=== PATIENT | female | born 1970 | race Caucasian/White ===

== ENCOUNTER 2016-06-02 23:50 | Emergency (ER) | payer BC, MEDICAID ==
[2016-06-03] MEDS ORDERED: FLUCONAZOLE 100 MG TABLET ONE (03:37)
[2016-06-03] MEDS ORDERED: metroNIDAZOLE 250 MG TABLET PO ONE (03:38)
[2016-06-03] MEDS: FLUCONAZOLE 100 MG TABLET PO STA (03:40)
[2016-06-03] MEDS: metroNIDAZOLE 250 MG TABLET PO STA (03:40)
== END 2016-06-03 03:45 | disposition home or self-care (01) ==
DX: N76.0 Acute vaginitis (principal)
CPT/HCPCS: 81001; 87210; 87491; 87591; 99283; A9270

== ENCOUNTER 2016-11-06 09:45 | Outpatient (CLI) | payer MEDICAID ==
[2016-11-10 19:26] LABS: TEST RESULT REPORT (())
== END 2016-11-06 09:46 | disposition home or self-care (01) ==
LOC: LAB 09:45
PROVIDERS: ATTEND Family Medicine
DX: R76.11 Nonspecific reaction to tuberculin skin test without active tuberculosis (principal)
CPT/HCPCS: 36415; 81599; 86480

== ENCOUNTER 2017-05-13 16:30 | Outpatient (CLI) | payer MEDICAID | END 2017-05-13 16:31 | disposition home or self-care (01) | LOC: LAB.R 16:30 | PROVIDERS: ATTEND Physician Assistant Medical | DX: R30.0 Dysuria (principal) | CPT/HCPCS: 87086 ==

== ENCOUNTER 2017-05-14 20:24 | Outpatient (CLI) | payer MEDICAID ==
[2017-05-14 12:30] LABS: BASOPHILS # (AUTO) 0.1 10^3/uL (0.0-0.1); BASOPHILS % (AUTO) 0.9 %; EOSINOPHILS # (AUTO) 0.1 10^3/uL (0.0-0.7); EOSINOPHILS % (AUTO) 1.2 %; HGB - HEMOGLOBIN 14.3 g/dL (12.0-16.0); LYMPHOCYTES # (AUTO) 2.3 10^3/uL (1.5-3.5); LYMPHOCYTES % (AUTO) 40.5 %; MEAN CORPUSCULAR HEMOGLOBIN 29.5 pg (27.0-31.0); MEAN CORPUSCULAR HGB CONC 33.6 g/dL (32.0-36.0); MEAN CORPUSCULAR VOLUME 87.8 fL (81.0-99.0); MEAN PLATELET VOLUME 7.6 fL (7.9-10.8); MONOCYTES # (AUTO) 0.4 10^3/uL (0.0-1.0); MONOCYTES % (AUTO) 6.9 %; NEUTROPHILS # (AUTO) 2.8 10^3/uL (1.5-6.6); NEUTROPHILS % (AUTO) 50.5 %; PLT - PLATELET COUNT 207 10^3/uL (130-450); RED BLOOD COUNT 4.85 10^6/uL (4.20-5.40); RED CELL DISTRIBUTION WIDTH 12.8 % (12.0-15.0); WHITE BLOOD COUNT 5.6 x10^3/uL (4.8-10.8)
[2017-05-14 13:05] LABS: HB2 TOTAL 15.9 g/dL; HEMOGLOBIN A1C 1.68 g/dL; HEMOGLOBIN A1C % 11.8 % (4.6-6.2)
[2017-05-14 14:20] LABS: ALBUMIN/GLOBULIN RATIO 1.4 (1.0-2.2); ALKALINE PHOSPHATASE 46 IU/L (42-121); ALT ALANINE AMINOTRANSFERASE 49 IU/L (10-60); AST ASPARTATE AMINOTRANSFERASE 32 IU/L (10-42); BILIRUBIN,TOTAL 0.6 mg/dL (0.2-1.0); BUN - BLOOD UREA NITROGEN 11 mg/dL (6-20); CALCIUM 9.2 mg/dL (8.5-10.3); CARBON DIOXIDE - CO2 26 mmol/L (21-32); CHLORIDE 99 mmol/L (101-111); CHOL/HDL RATIO 4.8 (<4.4); CHOLESTEROL 241 mg/dL; CREATININE 0.6 mg/dL (0.4-1.0); GFR - MDRD 108 (>89); GLUCOSE 261 mg/dL (70-100); HDL CHOLESTEROL 50 mg/dL; LDL CHOLESTEROL,CALCULATED 134 mg/dL; LDL/HDL RATIO 2.7 (<4.4); SODIUM 133 mmol/L (135-145); TOTAL PROTEIN 6.9 g/dL (6.7-8.2); VLDL CHOLESTEROL 57 mg/dL
== END 2017-05-14 20:25 | disposition home or self-care (01) ==
LOC: LAB.WCP 20:24
PROVIDERS: ATTEND Physician Assistant Medical
DX: Z00.00 Encounter for general adult medical examination without abnormal findings (principal); R81 Glycosuria
CPT/HCPCS: 36415; 80053; 80061; 83036; 83721; 84443; 85025

== ENCOUNTER 2017-08-31 08:11 | Outpatient (CLI) | payer MEDICAID ==
[2017-08-31 13:57] LABS: HB2 TOTAL 15.7 g/dL; HEMOGLOBIN A1C 1.02 g/dL; HEMOGLOBIN A1C % 8.1 % (4.6-6.2)
[2017-08-31 13:58] LABS: ALBUMIN 3.9 g/dL (3.2-5.5); ALBUMIN/GLOBULIN RATIO 1.1 (1.0-2.2); ALKALINE PHOSPHATASE 40 IU/L (42-121); ALT ALANINE AMINOTRANSFERASE 43 IU/L (10-60); AST ASPARTATE AMINOTRANSFERASE 23 IU/L (10-42); BILIRUBIN,TOTAL 0.7 mg/dL (0.2-1.0); BUN - BLOOD UREA NITROGEN 17 mg/dL (6-20); CALCIUM 9.2 mg/dL (8.5-10.3); CARBON DIOXIDE - CO2 23 mmol/L (21-32); CHLORIDE 103 mmol/L (101-111); CHOL/HDL RATIO 4.4 (<4.4); CHOLESTEROL 182 mg/dL; CREATININE 0.7 mg/dL (0.4-1.0); GFR - MDRD 90 (>89); GLUCOSE 231 mg/dL (70-100); HDL CHOLESTEROL 41 mg/dL; LDL CHOLESTEROL,CALCULATED 87 mg/dL; LDL/HDL RATIO 2.1 (<4.4); SODIUM 134 mmol/L (135-145); TOTAL PROTEIN 7.6 g/dL (6.7-8.2); VLDL CHOLESTEROL 54 mg/dL
== END 2017-08-31 08:12 | disposition home or self-care (01) ==
LOC: LAB.WCP 08:11
PROVIDERS: ATTEND Physician Assistant Medical
DX: E11.9 Type 2 diabetes mellitus without complications (principal)
CPT/HCPCS: 36415; 80053; 80061; 83036; 83721

== ENCOUNTER 2017-11-26 11:38 | Outpatient (CLI) | payer MEDICAID ==
[2017-11-26 19:56] LABS: CALCIUM 8.8 mg/dL (8.5-10.3); CREATININE 0.8 mg/dL (0.4-1.0)
[2017-11-26 19:57] LABS: HB2 TOTAL 14.3 g/dL; HEMOGLOBIN A1C 0.77 g/dL; HEMOGLOBIN A1C % 7.1 % (4.6-6.2)
== END 2017-11-26 11:39 ==
LOC: LAB.WCP 11:38
PROVIDERS: ATTEND Physician Assistant Medical
DX: E11.9 Type 2 diabetes mellitus without complications (principal)
CPT/HCPCS: 36415; 80048; 83036

== ENCOUNTER 2018-11-19 08:00 | Outpatient (CLI) | payer MEDICAID ==
[2018-11-19 11:59] LABS: BASOPHILS % (AUTO) 0.7 %; EOSINOPHILS # (AUTO) 0.1 10^3/uL (0.0-0.7); HGB - HEMOGLOBIN 13.6 g/dL (12.0-16.0); LYMPHOCYTES # (AUTO) 2.2 10^3/uL (1.5-3.5); LYMPHOCYTES % (AUTO) 36.1 %; MEAN CORPUSCULAR HEMOGLOBIN 28.8 pg (27.0-31.0); MEAN CORPUSCULAR HGB CONC 32.5 g/dL (32.0-36.0); MEAN CORPUSCULAR VOLUME 88.6 fL (81.0-99.0); MEAN PLATELET VOLUME 9.6 fL (7.9-10.8); MONOCYTES # (AUTO) 0.4 10^3/uL (0.0-1.0); MONOCYTES % (AUTO) 6.4 %; NEUTROPHILS # (AUTO) 3.4 10^3/uL (1.5-6.6); NEUTROPHILS % (AUTO) 55.5 %; PLT - PLATELET COUNT 220 10^3/uL (130-450); RED BLOOD COUNT 4.72 10^6/uL (4.20-5.40); WHITE BLOOD COUNT 6.1 x10^3/uL (4.8-10.8)
[2018-11-19 12:42] LABS: ALBUMIN 3.8 g/dL (3.2-5.5); ALBUMIN/GLOBULIN RATIO 1.2 (1.0-2.2); ALKALINE PHOSPHATASE 32 IU/L (42-121); ALT ALANINE AMINOTRANSFERASE 27 IU/L (10-60); AST ASPARTATE AMINOTRANSFERASE 22 IU/L (10-42); BILIRUBIN,TOTAL 0.7 mg/dL (0.2-1.0); BUN - BLOOD UREA NITROGEN 15 mg/dL (6-20); CARBON DIOXIDE - CO2 26 mmol/L (21-32); CHLORIDE 104 mmol/L (101-111); CHOL/HDL RATIO 4.2 (<4.4); CHOLESTEROL 209 mg/dL; CREATININE 0.7 mg/dL (0.4-1.0); GFR - MDRD 89 (>89); GLUCOSE 184 mg/dL (70-100); HDL CHOLESTEROL 50 mg/dL; LDL CHOLESTEROL,CALCULATED 127 mg/dL; LDL/HDL RATIO 2.5 (<4.4); SODIUM 136 mmol/L (135-145); VLDL CHOLESTEROL 32 mg/dL
[2018-11-19 13:37] LABS: HB2 TOTAL 13.9 g/dL; HEMOGLOBIN A1C 1.39 g/dL; HEMOGLOBIN A1C % 11.3 % (4.6-6.2)
== END 2018-11-19 23:59 | disposition home or self-care (01) ==
LOC: LAB.WCP 08:00
PROVIDERS: ATTEND Physician Assistant
DX: Z00.00 Encounter for general adult medical examination without abnormal findings (principal); E11.9 Type 2 diabetes mellitus without complications
CPT/HCPCS: 36415; 80053; 80061; 83036; 83721; 84443; 85025

== ENCOUNTER 2019-03-15 07:24 | Outpatient (CLI) | payer BC ==
[2019-03-15 16:14] LABS: HB2 TOTAL 12.9 g/dL; HEMOGLOBIN A1C 0.88 g/dL; HEMOGLOBIN A1C % 8.4 % (4.6-6.2)
[2019-03-15 16:20] LABS: ALBUMIN 3.8 g/dL (3.2-5.5); ALBUMIN/GLOBULIN RATIO 1.4 (1.0-2.2); ALKALINE PHOSPHATASE 30 IU/L (42-121); ALT ALANINE AMINOTRANSFERASE 44 IU/L (10-60); AST ASPARTATE AMINOTRANSFERASE 27 IU/L (10-42); BILIRUBIN,TOTAL 0.5 mg/dL (0.2-1.0); BUN - BLOOD UREA NITROGEN 19 mg/dL (6-20); CALCIUM 8.8 mg/dL (8.5-10.3); CARBON DIOXIDE - CO2 24 mmol/L (21-32); CHLORIDE 104 mmol/L (101-111); CHOL/HDL RATIO 4.5 (<4.4); CHOLESTEROL 224 mg/dL; CREATININE 0.7 mg/dL (0.4-1.0); GFR - MDRD 89 (>89); GLUCOSE 167 mg/dL (70-100); HDL CHOLESTEROL 50 mg/dL; LDL CHOLESTEROL,CALCULATED 121 mg/dL; LDL/HDL RATIO 2.4 (<4.4); SODIUM 136 mmol/L (135-145); TOTAL PROTEIN 6.6 g/dL (6.7-8.2); VLDL CHOLESTEROL 53 mg/dL
== END 2019-03-15 23:59 | disposition home or self-care (01) ==
LOC: LAB.WCP 07:24
PROVIDERS: ATTEND Physician Assistant Medical
DX: E11.9 Type 2 diabetes mellitus without complications (principal)
CPT/HCPCS: 36415; 80053; 80061; 83036; 83721

== ENCOUNTER 2020-07-26 08:00 | Outpatient (CLI) | payer BC ==
[2020-07-26 12:31] LABS: BASOPHILS # (AUTO) 0.1 10^3/uL (0.0-0.1); BASOPHILS % (AUTO) 0.8 %; EOSINOPHILS # (AUTO) 0.1 10^3/uL (0.0-0.7); EOSINOPHILS % (AUTO) 1.1 %; HCT - HEMATOCRIT 40.8 % (37.0-47.0); HGB - HEMOGLOBIN 13.4 g/dL (12.0-16.0); LYMPHOCYTES # (AUTO) 2.6 10^3/uL (1.5-3.5); LYMPHOCYTES % (AUTO) 35.3 %; MEAN CORPUSCULAR HEMOGLOBIN 28.8 pg (27.0-31.0); MEAN CORPUSCULAR HGB CONC 32.8 g/dL (32.0-36.0); MEAN CORPUSCULAR VOLUME 87.7 fL (81.0-99.0); MEAN PLATELET VOLUME 9.6 fL (7.9-10.8); MONOCYTES # (AUTO) 0.5 10^3/uL (0.0-1.0); MONOCYTES % (AUTO) 6.8 %; NEUTROPHILS % (AUTO) 55.7 %; PLT - PLATELET COUNT 265 10^3/uL (130-450); RED BLOOD COUNT 4.65 10^6/uL (4.20-5.40); RED CELL DISTRIBUTION WIDTH 12.2 % (12.0-15.0); WHITE BLOOD COUNT 7.2 x10^3/uL (4.8-10.8)
[2020-07-26 13:01] LABS: THYROID STIMULATING HORMONE 1.27 uIU/mL (0.34-5.60)
[2020-07-26 13:14] LABS: ALBUMIN/GLOBULIN RATIO 1.4 (1.0-2.2); ALKALINE PHOSPHATASE 33 IU/L (42-121); ALT ALANINE AMINOTRANSFERASE 28 IU/L (10-60); AST ASPARTATE AMINOTRANSFERASE 21 IU/L (10-42); BILIRUBIN,TOTAL 0.6 mg/dL (0.2-1.0); BUN - BLOOD UREA NITROGEN 17 mg/dL (6-20); CALCIUM 9.4 mg/dL (8.5-10.3); CARBON DIOXIDE - CO2 25 mmol/L (21-32); CHLORIDE 108 mmol/L (101-111); CHOL/HDL RATIO 4.3 (<4.4); CHOLESTEROL 234 mg/dL; CREATININE 0.6 mg/dL (0.4-1.0); GFR - MDRD 106 (>89); GLUCOSE 153 mg/dL (70-100); HDL CHOLESTEROL 55 mg/dL; LDL CHOLESTEROL,CALCULATED 133 mg/dL; LDL/HDL RATIO 2.4 (<4.4); POTASSIUM 4.7 mmol/L (3.5-5.0); SODIUM 139 mmol/L (135-145); TOTAL PROTEIN 6.9 g/dL (6.7-8.2); TRIGLYCERIDES 228 mg/dL; VLDL CHOLESTEROL 46 mg/dL
[2020-07-26 13:23] LABS: ESTIMATED AVERAGE GLUCOSE 226 mg/dL (70-100); HEMOGLOBIN A1c% 9.5 % (4.27-6.07)
[2020-07-26 13:26] LABS: CREATININE,URINE 139.7 mg/dL; MICROALBUM/CREATININE RATIO,UR 14.3 ug/mg (<30.0)
== END 2020-07-26 23:59 | disposition home or self-care (01) ==
LOC: LAB.WCP 08:00
PROVIDERS: ATTEND Physician Assistant Medical
DX: Z00.00 Encounter for general adult medical examination without abnormal findings (principal); E11.9 Type 2 diabetes mellitus without complications
CPT/HCPCS: 36415; 80053; 80061; 82043; 82570; 83036; 83721; 84443; 85025

== ENCOUNTER 2020-08-23 06:52 | Outpatient (CLI) | payer BC ==
--- NOTE | 2020-08-23 09:54 | Ultrasound Report ---
PROCEDURE: Abdomen Limited INDICATIONS: Right upper quadrant abdominal pain TECHNIQUE: Real-time focused scanning was performed of the abdomen, with image documentation. COMPARISON: None FINDINGS: Increased hepatic parenchymal echogenicity consistent with hepatic steatosis with focal fa tty sparing at the birgit hepatis. No focal hepatic mass. Small echogenic focus in the left hepatic lo be near the gallbladder loss with posterior shadowing is likely a small calcification. Normally diste nded gallbladder without wall thickening or para cholecystic fluid. No shadowing gallstone or sludge. The intrahepatic and extra hepatic biliary ducts are normal in size. Pancreas is within normal limit s. Right kidney is unremarkable. IMPRESSION: Increased hepatic parenchymal echogenicity suggestive of diffuse mild to moderate hepatic steatosis. Reviewed by: Gabriele Parra MD on 08/23/2020 9:52 AM PDT Approved by: Gabriele Parra MD on 08/23/2020 9:52 AM PDT Station ID: [id number]
== END 2020-08-23 06:53 | disposition home or self-care (01) ==
LOC: DI 06:52
PROVIDERS: ATTEND Physician Assistant Medical
DX: R93.2 Abnormal findings on diagnostic imaging of liver and biliary tract (principal)

== ENCOUNTER 2020-10-22 16:22 | Outpatient (CLI) | payer BC ==
[2020-10-22 20:45] LABS: CALCIUM 9.3 mg/dL (8.5-10.3); CREATININE 0.7 mg/dL (0.4-1.0); POTASSIUM 4.2 mmol/L (3.5-5.0)
[2020-10-22 20:55] LABS: ESTIMATED AVERAGE GLUCOSE 203 mg/dL (70-100); HEMOGLOBIN A1c% 8.7 % (4.27-6.07)
== END 2020-10-22 16:23 | disposition home or self-care (01) ==
LOC: LAB.N 16:22
PROVIDERS: ATTEND Physician Assistant Medical
DX: E11.9 Type 2 diabetes mellitus without complications (principal)
CPT/HCPCS: 36415; 80048; 83036

== ENCOUNTER 2021-10-17 09:56 | Outpatient (CLI) | payer BC ==
[2021-10-17 12:30] LABS: ALBUMIN 3.8 g/dL (3.2-5.5); ALBUMIN/GLOBULIN RATIO 1.5 (1.0-2.2); ALKALINE PHOSPHATASE 34 IU/L (42-121); ALT ALANINE AMINOTRANSFERASE 21 IU/L (10-60); AST ASPARTATE AMINOTRANSFERASE 15 IU/L (10-42); BILIRUBIN,TOTAL 0.8 mg/dL (0.2-1.0); BUN - BLOOD UREA NITROGEN 13 mg/dL (6-20); CARBON DIOXIDE - CO2 24 mmol/L (21-32); CHLORIDE 103 mmol/L (101-111); CHOL/HDL RATIO 4.4 (<4.4); CHOLESTEROL 233 mg/dL; CREATININE 0.7 mg/dL (0.4-1.0); GFR - MDRD 88 (>89); GLUCOSE 304 mg/dL (70-100); HDL CHOLESTEROL 53 mg/dL; LDL CHOLESTEROL,CALCULATED 150 mg/dL; LDL/HDL RATIO 2.8 (<4.4); POTASSIUM 4.5 mmol/L (3.5-5.0); SODIUM 134 mmol/L (135-145); TOTAL PROTEIN 6.4 g/dL (6.7-8.2); TRIGLYCERIDES 149 mg/dL; VLDL CHOLESTEROL 30 mg/dL
[2021-10-17 13:37] LABS: ESTIMATED AVERAGE GLUCOSE 295 mg/dL (70-100); HEMOGLOBIN A1c% 11.9 % (4.27-6.07)
== END 2021-10-17 09:57 | disposition home or self-care (01) ==
LOC: LAB.N 09:56
PROVIDERS: ATTEND Physician Assistant Medical
DX: E11.9 Type 2 diabetes mellitus without complications (principal)
CPT/HCPCS: 36415; 80053; 80061; 83036; 83721

== ENCOUNTER 2022-02-17 09:04 | Outpatient (CLI) | payer BC ==
[2022-02-17 12:50] LABS: CHOL/HDL RATIO 3.9 (<4.4); CHOLESTEROL 240 mg/dL; HDL CHOLESTEROL 62 mg/dL; LDL CHOLESTEROL,CALCULATED 155 mg/dL; LDL/HDL RATIO 2.5 (<4.4); TRIGLYCERIDES 117 mg/dL; VLDL CHOLESTEROL 23 mg/dL
== END 2022-02-17 09:05 | disposition home or self-care (01) ==
LOC: LAB.N 09:04
PROVIDERS: ATTEND Physician Assistant Medical
DX: E78.5 Hyperlipidemia, unspecified (principal)
CPT/HCPCS: 36415; 80061; 83721

== ENCOUNTER 2023-03-19 08:00 | Outpatient (CLI) | payer BC | END 2023-03-19 23:59 | disposition home or self-care (01) | LOC: LAB.N 08:00 | PROVIDERS: ATTEND Specialist | DX: R30.0 Dysuria (principal) | CPT/HCPCS: 81514; 87086 ==

== ENCOUNTER 2023-03-19 16:01 | Emergency (ER) | payer BC ==
[2023-03-19 20:18] LABS: BILIRUBIN,URINE NEGATIVE (NEGATIVE); GLUCOSE, URINE (UA) 500 mg/dL (NEGATIVE); KETONES,URINE (UA) NEGATIVE (NEGATIVE); LEUKOCYTE ESTERASE, URINE TRACE (NEGATIVE); NITRITE,URINE NEGATIVE (NEGATIVE); OCCULT BLOOD,URINE TRACE-INTA (NEGATIVE); PH,URINE 5.5 PH (5.0-7.5); PROTEIN,URINE NEGATIVE (NEGATIVE); UROBILINOGEN,URINE 0.2 (NORMAL) E.U./dL (NORMAL)
[2023-03-19 20:23] LABS: CLARITY,URINE HAZY (CLEAR); HCG UR QUAL NEGATIVE
[2023-03-19 20:49] LABS: BACTERIA,URINE Few /HPF (None Seen); RBC,URINE 0-5 /HPF (0-5); SQUAMOUS EPITHELIAL CELL,UR MOD Squamous (<= Few)
[2023-03-19 20:50] LABS: YEAST,URINE PRESENT
[2023-03-19] MEDS ORDERED: diphenhydrAMINE INJ 50 MG/ML VIAL IVP STA (21:03)
--- NOTE | 2023-03-19 21:03 | ED Physician Documentation ---
History of Present Illness - Stated complaint Stated Complaint: - Chief complaint Chief Complaint: General - History obtained from History obtained from: Patient, Family - Additonal information Additional information: This is a 52-year-old female who has a past medical history of type 2 diabetes who presents with severe vaginal pruritus and soreness. Symptoms started a couple of days ago, and patient has been using vagisil [id number] for the last 2 days without relief in her symptoms. She denies any other irritant contacts, no new soaps lotions or detergents. She has had some clear vaginal discharge, no other vaginal discharge. She has mild dysuria. No fever, no chills, no abdominal or flank pain. She was seen today at another clinic and there was apparently concern for possible María's gangrene this the patient was directed to the ER. Patient is very uncomfortable mostly due to pruritus so there is some pain in that area, no drainage from the skin, she denies any concern for STI, she is and they are in a monogamous relationship. Review of Systems Constitutional: reports: Reviewed and negative Cardiac: reports: Reviewed and negative Respiratory: reports: Reviewed and negative GI: reports: Reviewed and negative : reports: Dysuria, Other (Vaginal and perineal pruritus). 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 - Present Medications Home Medications: Ambulatory Orders Medication Instructions Recorded Confirmed Metformin HCl 1,000 mg PO BID 10/05/17 01/06/19 cephALEXin [Keflex] 500 mg PO Q6H #20 cap 03/19/23 diphenhydrAMINE [Benadryl] 25 mg PO Q4-6H #20 cap 03/19/23 - Allergies Allergies/Adverse Reactions: Allergies Allergy/AdvReac Type Severity Reaction Status Date / Time No Known Drug Allergies Allergy Verified 03/19/23 16:35 - Social History Does the pt smoke?: No Smoking Status: Never smoker Does the pt drink ETOH?: No Does the pt have substance abuse?: No - Immunizations Immunizations are current?: No - POLST Patient has POLST: No PD ED PE NORMAL - Vitals Vital signs reviewed: Yes - General General: Alert and oriented X 3, No acute distress, Well developed/nourished - HEENT HEENT: Atraumatic, Moist mucous membranes, Pharynx benign - Neck Neck: Supple, no meningeal sign, No JVD - Cardiac Cardiac: RRR, No murmur, No gallop, No rub - Abdomen Abdomen: Normal bowel sounds, Soft, Non tender, Non distended - Female Female : Other (There is redness in the bilateral groin and into the bilateral labia with some mild to moderate swelling of the labia. No ulcerations or cellulitis noted. There is mild tenderness with palpation of the labia, no groin tenderness.) - Derm Derm: Normal color, Warm and dry, Other (Perineal rash as described above) - Extremities Extremities: No deformity, No tenderness to palpate, Normal ROM s pain, No edema - Neuro Neuro: Alert and oriented X 3 Eye Opening: Spontaneous Motor: Obeys Commands Verbal: Oriented GCS Score: 15 Results - Vitals Vitals: Vital Signs - 24 hr 03/19/23 03/19/23 16:29 21:59 Temperature 36.5 C 36.5 C Heart Rate 88 81 Respiratory 18 17 Rate Blood Pressure 141/79 H 114/78 O2 Saturation 100 100 Oxygen O2 Source Room air - Labs Labs: Laboratory Tests 03/19/23 03/19/23 03/19/23 16:30 16:30 21:15 WBC 8.3 RBC 5.18 Hgb 14.7 Hct 43.8 MCV 84.6 MCH 28.4 MCHC 33.6 RDW 12.1 Plt Count 251 MPV 9.0 Neut # (Auto) 5.6 Lymph # (Auto) 1.9 Lee # (Auto) 0.6 Eos # (Auto) 0.2 Baso # (Auto) 0.0 Absolute Nucleated RBC 0.00 Nucleated RBC % 0.0 Sodium Potassium Chloride Carbon Dioxide Anion Gap BUN Creatinine Estimated GFR (MDRD) Glucose Calcium Total Bilirubin AST ALT Alkaline Phosphatase Total Protein Albumin Globulin Albumin/Globulin Ratio Lipase Urine Color YELLOW Urine Clarity HAZY Urine pH 5.5 Ur Specific [place] 1.010 Urine Protein NEGATIVE Urine Glucose (UA) 500 H Urine Ketones NEGATIVE Urine Occult Blood TRACE-INTA Urine Nitrite NEGATIVE Urine Bilirubin NEGATIVE Urine Urobilinogen 0.2 (NORMAL) Ur Leukocyte Esterase TRACE H Urine RBC 0-5 Urine WBC 6-10 H Ur Squamous Epith Cells MOD Squamous H Urine Bacteria Few Urine Yeast PRESENT Ur Microscopic Review INDICATED Urine Culture Comments NOT INDICATED Urine HCG, Qual NEGATIVE 03/19/23 21:15 WBC RBC Hgb Hct MCV MCH MCHC RDW Plt Count MPV Neut # (Auto) Lymph # (Auto) Lee # (Auto) Eos # (Auto) Baso # (Auto) Absolute Nucleated RBC Nucleated RBC % Sodium 131 L Potassium 3.9 Chloride 100 L Carbon Dioxide 22 Anion Gap 9.0 BUN 15 Creatinine 0.7 Estimated GFR (MDRD) 88 L Glucose 412 H Calcium 9.1 Total Bilirubin 0.4 AST 10 ALT 14 Alkaline Phosphatase 42 Total Protein 6.4 Albumin 3.9 Globulin 2.5 Albumin/Globulin Ratio 1.6 Lipase 26 Urine Color Urine Clarity Urine pH Ur Specific [place] Urine Protein Urine Glucose (UA) Urine Ketones Urine Occult Blood Urine Nitrite Urine Bilirubin Urine Urobilinogen Ur Leukocyte Esterase Urine RBC Urine WBC Ur Squamous Epith Cells Urine Bacteria Urine Yeast Ur Microscopic Review Urine Culture Comments Urine HCG, Qual PD Medical Decision Making - ED course Complexity details: reviewed results, re-evaluated patient, considered differential, d/w patient, d/w family ED course: This is a 52-year-old female who presents with vaginal pruritus and swelling as described in HPI. It sounds as though she was seen at outside clinic and there was concern for María's gangrene the patient is nontoxic-appearing, has stable vital signs, has been afebrile. She does have poorly controlled diabetes however making her at risk for infection But clinically does not have fourniers. On exam, the patient has pruritus and redness to the groin and labia with some mild swelling. It appears more of a dermatitis or Skin reaction then cellulitis or infection at this time. Her urinalysis is contaminated but not suggestive of infection, bacterial vaginosis swab is pending but I have low suspicion for this. I suspect this was a vaginitis that is quite severe given patient's diabetes and or there was a potential reaction to the vaginocele that the patient use. I do not suspect coronary screening [place] at this time as the patient is not ill, is nontoxic and had some improvement after being given Benadryl IV here. She received Benadryl with improvement in the pruritus and mild improvement in the pain. I also gave her a dose of fluconazole here as I would like her to stop the vaginocele. I have recommended that she use Benadryl every 4-6 hours, and use a cool compress on the area to help with pain and swelling. She should stop the vaginocele and avoid any other topical ointments, tight fitting close or irritant contacts to the area. She was encouraged to have better control of her diabetes to help with healing process. So I think it is less likely that this is infection, I am going to give her a dose of ceftriaxone here and discharge her home on Keflex. The patient may need a repeat dose of fluconazole at the end of her antibiotic course. She was advised that if she developed a fever, increasing pain, spreading erythema or new concerns to return to the ER. Departure - Departure Disposition: Home, Self Care Clinical Impression: Skin infection Hyperglycemia due to type 2 diabetes mellitus Qualifiers: Diabetes mellitus salvage determiner insulin use: unspecified salvage determiner insulin use status Qualified Code(s): E11.65 - Type 2 diabetes mellitus with hyperglycemia Condition: Good Instructions: Cellulitis Dc, ED Hyperglycemia Diabetic Prescriptions: diphenhydrAMINE [Benadryl] 25 mg PO Q4-6H #20 cap cephALEXin [Keflex] 500 mg PO Q6H #20 cap Comments: Your blood sugar is extremely high. This has likely led to your groin rash. This may be an infection or a skin reaction. I have started you on antibiotics and I also recommend that you take Benadryl every 4-6 hours to help with the itching and swelling. Please use a cool compress on the area for pain and swelling as well. Do not put any creams or ointments in the area And avoid any tight fitting clothing, soaps, lotions, or vaginal cleansers. If the swelling worsens, or you develop a fever or increased pain, please return to the ER. Please follow-up with your primary doctor as soon as possible for your diabetes, they may need to adjust your diabetes medicine. Please try to stick to a diabetic diet, avoid sugary foods and drinks in limit carbohydrates. Forms: PCP List
[2023-03-19 21:28] LABS: BASOPHILS % (AUTO) 0.2 %; EOSINOPHILS # (AUTO) 0.2 10^3/uL (0.0-0.7); EOSINOPHILS % (AUTO) 2.3 %; HCT - HEMATOCRIT 43.8 % (37.0-47.0); HGB - HEMOGLOBIN 14.7 g/dL (12.0-16.0); LYMPHOCYTES # (AUTO) 1.9 10^3/uL (1.5-3.5); LYMPHOCYTES % (AUTO) 23.3 %; MEAN CORPUSCULAR HEMOGLOBIN 28.4 pg (27.0-31.0); MEAN CORPUSCULAR HGB CONC 33.6 g/dL (32.0-36.0); MEAN CORPUSCULAR VOLUME 84.6 fL (81.0-99.0); MONOCYTES # (AUTO) 0.6 10^3/uL (0.0-1.0); NEUTROPHILS # (AUTO) 5.6 10^3/uL (1.5-6.6); PLT - PLATELET COUNT 251 10^3/uL (130-450); RED BLOOD COUNT 5.18 10^6/uL (4.20-5.40); RED CELL DISTRIBUTION WIDTH 12.1 % (12.0-15.0); WHITE BLOOD COUNT 8.3 x10^3/uL (4.8-10.8)
[2023-03-19 21:35] LABS: ALBUMIN 3.9 g/dL (3.2-5.5); ALBUMIN/GLOBULIN RATIO 1.6 (1.0-2.2); BILIRUBIN,TOTAL 0.4 mg/dL (0.2-1.0); CALCIUM 9.1 mg/dL (8.5-10.3); CREATININE 0.7 mg/dL (0.6-1.3); POTASSIUM 3.9 mmol/L (3.5-4.5); TOTAL PROTEIN 6.4 g/dL (6.4-8.9)
[2023-03-19] MEDS ORDERED: FLUCONAZOLE 100 MG TABLET PO STA (21:39)
[2023-03-19] MEDS ORDERED: cefTRIAXone 2 GM in SODIUM CHLORIDE 0.9% MINIBAG 100 ML IV STA (22:01)
[2023-03-19] MEDS ORDERED: cefTRIAXone 2 GM VIAL ONE (22:08)
[2023-03-19 22:09] LABS: BACTERIAL VAGINOSIS DNA NEGATIVE (NEGATIVE); CANDIDA GROUP DNA POSITIVE (NEGATIVE); CANDIDA KRUSEI DNA NEGATIVE (NEGATIVE); TRICHOMONAS VAGINALIS DNA NEGATIVE (NEGATIVE)
[2023-03-19 22:10] LABS: CANDIDA GLABRATA DNA NEGATIVE (NEGATIVE)
[2023-03-19 22:57] VITALS: BP 111/58; O2SAT 98
== END 2023-03-19 22:50 | disposition home or self-care (01) ==
LOC: ED 16:01
DX: N76.0 Acute vaginitis (principal); R30.0 Dysuria; E11.65 Type 2 diabetes mellitus with hyperglycemia; Z79.84 Long term (current) use of oral hypoglycemic drugs
CPT/HCPCS: 36415; 80053; 81001; 81025; 81514; 83690; 85025; 87086; 96365; 96375; 99284; A9270; J1200; 81003

== ENCOUNTER 2023-08-05 09:16 | Outpatient (CLI) | payer BC ==
[2023-08-05 12:37] LABS: ALBUMIN/GLOBULIN RATIO 1.3 (1.0-2.2); ALKALINE PHOSPHATASE 43 IU/L (42-121); ALT ALANINE AMINOTRANSFERASE 28 IU/L (10-60); AST ASPARTATE AMINOTRANSFERASE 20 IU/L (10-42); BILIRUBIN,TOTAL 0.7 mg/dL (0.2-1.0); BUN - BLOOD UREA NITROGEN 12 mg/dL (6-20); CALCIUM 9.6 mg/dL (8.5-10.3); CARBON DIOXIDE - CO2 28 mmol/L (21-32); CHLORIDE 100 mmol/L (101-111); CHOL/HDL RATIO 3.7 (<4.4); CHOLESTEROL 220 mg/dL; CREATININE 0.7 mg/dL (0.6-1.3); GFR - MDRD 88 (>89); GLUCOSE 339 mg/dL (74-104); HDL CHOLESTEROL 60 mg/dL; LDL CHOLESTEROL,CALCULATED 128 mg/dL; LDL/HDL RATIO 2.1 (<4.4); POTASSIUM 4.6 mmol/L (3.5-4.5); SODIUM 132 mmol/L (135-145); TRIGLYCERIDES 159 mg/dL (48-352); VLDL CHOLESTEROL 32 mg/dL
[2023-08-05 13:00] LABS: ESTIMATED AVERAGE GLUCOSE 352 mg/dL (70-100); HEMOGLOBIN A1c% 13.9 % (4.27-6.07)
== END 2023-08-05 09:17 | disposition home or self-care (01) ==
LOC: LAB.N 09:16
PROVIDERS: ATTEND Physician Assistant Medical
DX: E11.9 Type 2 diabetes mellitus without complications (principal)
CPT/HCPCS: 36415; 80053; 80061; 83036; 83721